=== PATIENT | female | born 1970 | race Caucasian/White ===

== ENCOUNTER 2016-12-25 12:11 | Emergency (ER) | payer OTHER ==
[~2016-12-25] VITALS: Ht 162.6 cm; Wt 66.2 kg
[~2016-12-25 12:11] MED LIST: DENIES
[2016-12-25] MEDS ORDERED: SODIUM CHLORIDE 0.9% 1,000ML IVBOLUS ONE (13:00)
[2016-12-25] MEDS ORDERED: SODIUM CHLORIDE FLUSH 10ML SYR IVF ONE (13:00)
[2016-12-25] MEDS ORDERED: KETOROLAC 30 MG/1 ML IVPush ONE (13:00)
[2016-12-25] MEDS ORDERED: PROCHLORPERAZINE 5 MG/ML, 2ML IVPush ONE (13:00)
[2016-12-25] MEDS ORDERED: DIPHENHYDRAMINE 50 MG/ML, 1ML IVPush ONE (13:00)
[2016-12-25 13:28] LABS: HEMATOCRIT 42.2 % (34.6-47.8); WHITE BLOOD COUNT 8.9 x10^3/uL (3.4-10)
[2016-12-25 13:39] LABS: BLOOD UREA NITROGEN 12 mg/dL (7-18)
[2016-12-25 13:45] LABS: ASPARTATE AMINO TRANSFERASE 24 U/L (15-37)
[2016-12-25] MEDS ORDERED: PROCHLORPERAZINE 5 MG/ML, 2ML ONE (14:02)
[2016-12-25] MEDS ORDERED: KETOROLAC 30 MG/1 ML ONE (14:02)
[2016-12-25] MEDS ORDERED: DIPHENHYDRAMINE 50 MG/ML, 1ML ONE (14:02)
[2016-12-25 15:34] VITALS: BP 129/70
== END 2016-12-25 15:36 | disposition home or self-care (01) ==
LOC: ED 14:44
DX: G43.C0 Periodic headache syndromes in child or adult, not intractable (principal); Z85.3 Personal history of malignant neoplasm of breast; Z90.10 Acquired absence of unspecified breast and nipple; Z88.5 Allergy status to narcotic agent
CPT/HCPCS: 36415; 70450; 80053; 84703; 85025; 93005; 96361; 96374; 96375; 99285; J0780; J1200; J1885; J7030

== ENCOUNTER 2017-06-28 05:30 | Day surgery (SDC) | payer OTHER ==
[~2017-06-28] VITALS: Ht 162.6 cm; Wt 65.9 kg
[~2017-06-28 05:30] MED LIST changes: +ACET325T26 PO; +AMOX1TAB64 PO; +MULT-154 PO; +NITR100C56 PO
[2017-06-28 06:08] VITALS: BP 113/73
[2017-06-28] MEDS ORDERED: LACTATED RINGERS 1,000 ML IV SCH (06:08)
[2017-06-28] MEDS ORDERED: SCOPOLAMINE PATCH, 1.5MG PATCH.TD72 TD ONE (06:19)
[2017-06-28] MEDS ORDERED: SCOPOLAMINE PATCH, 1.5MG PATCH.TD72 TD STA (06:21)
[2017-06-28] MEDS ORDERED: SODIUM BICARBONATE 1 MEQ/ML, 50ML VIAL ONE (06:27)
[2017-06-28] MEDS ORDERED: CEFAZOLIN 1,000 MG ONE ×2 (06:27→06:39)
[2017-06-28] MEDS ORDERED: GENTAMICIN 80 MG/2 ML ONE (06:27)
[2017-06-28] MEDS ORDERED: EPINEPHRINE 1 MG/ML, 1ML ONE (06:28)
[2017-06-28] MEDS ORDERED: LIDOCAINE-MPF 2% ,5ML ONE (06:28)
[2017-06-28] MEDS ORDERED: BACITRACIN 50,000 UNIT ONE (06:28)
[2017-06-28] MEDS ORDERED: ROCURONIUM 10 MG/ML,10ML ONE (06:39)
[2017-06-28] MEDS ORDERED: PROPOFOL 10 MG/ML, 20ML ONE (06:39)
[2017-06-28] MEDS ORDERED: DEXAMETHASONE 4 MG/ML, 1ML ONE (06:40)
[2017-06-28] MEDS ORDERED: FENTANYL PF 250 MCG/5ML ONE (06:43)
[2017-06-28] MEDS ORDERED: MIDAZOLAM 1 MG/ML, 2ML ONE (06:43)
[2017-06-28] MEDS ORDERED: ONDANSETRON 2MG/ML, 2ML ONE (07:13)
[2017-06-28] MEDS ORDERED: PROPOFOL 100 ML ONE (07:14)
[2017-06-28] MEDS ORDERED: NEOSTIGMINE 1 MG/ML, 10ML ONE (08:55)
[2017-06-28] MEDS ORDERED: GLYCOPYRROLATE 0.4 MG/2 ML, 2ML ONE (08:56)
[2017-06-28] MEDS ORDERED: ALBUTEROL SULFATE 2.5 MG/3 ML NPPB PRN (09:00)
[2017-06-28] MEDS ORDERED: MEPERIDINE/PF 25MG/0.5ML IVPush PRN (09:00)
[2017-06-28] MEDS ORDERED: ACETAMINOPHEN 325 MG TABLET PO PRN (09:00)
[2017-06-28] MEDS ORDERED: OXYcodone 5 MG/5 ML ORAL.SOL UDC PO PRN ×2 (09:00→11:00)
[2017-06-28] MEDS ORDERED: PROMETHAZINE 25 MG/ML, 1ML IV PRN (09:00)
[2017-06-28] MEDS ORDERED: LABETALOL 5MG/ML, 20ML IV PRN (09:00)
[2017-06-28] MEDS ORDERED: ONDANSETRON 2MG/ML, 2ML IVPush PRN (09:00)
[2017-06-28] MEDS ORDERED: DIAZEPAM 5 MG/ML, 2ML IVPush PRN (09:00)
[2017-06-28] MEDS ORDERED: EPHEDRINE 50 MG/ML, 1ML IVPush PRN (09:00)
[2017-06-28] MEDS ORDERED: hydrALAzine 20 MG/ML, 1ML IV PRN (09:00)
[2017-06-28] MEDS ORDERED: HYDROmorphone 1 MG/ML, 1ML IV PRN (09:00)
[2017-06-28] MEDS ORDERED: METOPROLOL 1 MG/ML, 5ML IV PRN (09:00)
[2017-06-28] MEDS ORDERED: ACETAMINOPHEN 650 MG/20.3 ML UDC ONE (09:16)
[2017-06-28] MEDS ORDERED: OXYcodone 5 MG/5 ML ORAL.SOL UDC ONE (09:17)
[2017-06-28] MEDS ORDERED: FENTANYL PF 100 MCG/2ML ONE ×2 (09:17→09:49)
[2017-06-28] MEDS ORDERED: ACETAMINOPHEN 325 MG TABLET ONE (09:17)
[2017-06-28] MEDS: FENTANYL PF 100 MCG/2ML IV PRN ×4 (09:21→10:03)
[2017-06-28] MEDS ORDERED: OXYcodone IR 5MG TABLET ONE (10:37)
== END 2017-06-28 12:25 ==
LOC: OUT 05:30
PROVIDERS: ATTEND Plastic Surgery
DX: T85.44XA Capsular contracture of breast implant, initial encounter (principal); N64.89 Other specified disorders of breast; N65.1 Disproportion of reconstructed breast; Y83.8 Other surgical procedures as the cause of abnormal reaction of the patient, or of later complication, without mention of misadventure at the time of the procedure; Y92.89 Other specified places as the place of occurrence of the external cause; Z85.3 Personal history of malignant neoplasm of breast; Z90.710 Acquired absence of both cervix and uterus; Z87.891 Personal history of nicotine dependence; Z72.89 Other problems related to lifestyle; Z88.6 Allergy status to analgesic agent
CPT/HCPCS: 19316; 19340; 19371; C1729; C1789; J0171; J0690; J1100; J1580; J2250; J2405; J2704; J2710; J3010; J3490; J7120